=== PATIENT | female | born 1980 | race Caucasian/White ===

== ENCOUNTER 2022-05-19 07:06 | Outpatient (CLI) | payer OTHER, SELFPAY ==
--- OUTSIDE RECORDS SUMMARY | 2022-05-19 07:08 | XMS_ITS | Clinical Summary ---
:1980 Author Organization [employer] [place] [address] Care Team Providers Name Role Phone Tana Birmingham MD Primary Care Provider Unavailable Allergies No known active allergies Medications Medication Sig Dispensed Refills Start Date End Date Status LEXAPRO 20 MG TAB take 1 tablet 0 12/08/2008 Active (20 mg) by oral route once daily APRI 0.15 MG-30 MCG TAB take 1 tablet 0 12/08/2008 Active by oral route once daily hydrochlorothiazide (HCTZ) Take 1 tablet 0 6 Active 25 mg tablet by mouth once daily. coenzyme q10 (COQ-10) 100 Take 1 capsule 0 6 Active mg cap by mouth once daily. medication order composer 400 mcg once 0 05/26/2016 Active daily. Folate 400 mcg daily Cholecalciferol, Vitamin Take 1 tablet 0 05/26/2016 Active D3, (VITAMIN D-3) 2,000 by mouth once unit tablet daily. multivitamin (MVI) tablet Take 1 tablet 0 05/26/2016 Active by mouth once daily. [place]-3 Fatty Acids (FISH Take 1 capsule 0 6 Active OIL) 500 mg capsule by mouth once daily. Active Problems Patient Care Coordination Note Formatting of this note might be differe nt from the original. Provided patient Clean TeQ Weight Ma pan Manual: Medical Program Amrita Montero RD, LD [facility] 05/08/2016 Problem Noted Date Controlled substance agreement terminated 11/28/2016 Elevated fasting glucose 05/25/2016 Vitamin D insufficiency 05/25/2016 Obesity, morbid, BMI 40.0-49.9 05/08/2016 Hypertension 05/08/2016 Infertility, female 05/08/2016 Overview: [facility] PL[facility] IVF -NEEDS TO HAVE BMI 35 OR LE SS Asthma Anxiety Depression Overview: Therapist is Lala Raman [facility] [place] Self-injurious behavior Overview: hospitalized age 19, [facility] Last symptoms 2014 Resolved Problems Problem Noted Date Resolved Date Controlled substance agreement signed 08/29/2016 Overview: For weight loss medications [facility] Signed 08/28/16 Family History Medical History Relation Name Comments Hypertension Father COPD Maternal Grandfather Heart Disease Maternal Grandfather CHF Hypertension Maternal Grandfather Stroke Maternal Grandfather In his 50's Hypertension Mother Hypertension Paternal Grandfather Diabetes Paternal Grandmother Hypertension Paternal Grandmother Other Paternal Grandmother Hx of overw eight/ obesity Relation Name Status Comments Father Maternal Grandfather Mother Paternal Grandfather Paternal Grandmother Social History Tobacco Use Types Packs/Day Years Used Date Never Smoker Smokeless Tobacco: Never Used Tobacco Cessation: Counseling Given: No Comments: 10/02/16 Alcohol Use Standard Drinks/Week Comments Yes 0 (1 standard drink = 0.6 oz pure alcoho l) 10/02/16 Socially Alcohol Habits Answer Date Recorded How often do you have a drink containing alcohol? Not asked How many drinks containing alcohol do you have on a Not aske d typical day when you are drinking? How often do you have six or more drinks on one Not asked occasion? Comment: 10/02/16 Socially 10/02/2016 Sex Assigned at Date Recorded Not on file Obstetrics History Last Filed Vital Signs Vital Sign Reading Time Taken Comments Blood Pressure 106/76 11/28/2016 10:00 AM CDT Pulse 84 11/28/2016 10:00 AM CDT Temperature - - Respiratory Rate 16 11/28/2016 10:00 AM CDT Oxygen Saturation - - Inhaled Oxygen Concentration - - Weight 109.3 kg (241 lb) 11/28/2016 10:00 AM CDT Height 167.6 cm (5' 5.98) 11/28/2016 10:00 AM CDT Body Mass Index 38.92 11/28/2016 10:00 AM CDT Plan of Treatment Health Maintenance Due Date Last Done Comments COVID-19 vaccine series (#1) 04/12/1981 Tdap 10/12/1991 Hepatitis C screening for age 0410/11/1998 18-79 Tetanus booster 2000 Depression screening for age 12+ 10/02/2017 10/02/2016, , 05/08/2016, Additional history exists BMI (ht and wt on same day) for 11/28/2017 11/28/2016, 10/08, age 18+ 10/02/2016, Additional history exists Pap test for age 21-65 12/01/2019 11/30/2016, 11/30/2016, 11/22/2011, Additional history exists Influenza for age 9-49 03/09/2022 Results Not on filefrom Last 3 Months Insurance Payer Benefit Plan / Subscriber ID Effective Dates Phone Addre ss Type Group PREFERRED ONE PREFERRED ONE [id number] 2015-Regina [address]ARKER [address] [place] [address] Care Teams Salon Shampoo Assistant Relationship Specialty Start Date End Date Tana Birmingham MD PCP - General 12/07/08
--- NOTE | 2022-05-19 07:15 | MR_ITS ---
[address] [address] Phone:?[phone] Fax:?[phone] Referring Physician Information: Franko Cates M.D. [address] [facility] [address] Phone:?[phone] Fax:?[phone] Patient:Stephie Wahl D.O.B:?1980 Sex:?Female Phone:?[phone] [facility] MRN:?[id number] Exam Date:?05/19/2022 ? EXAM: MRI OF THE RIGHT KNEE CLINICAL INFORMATION: The patient is a 41-year-old with right knee pain. Evaluate for medial meniscal tear. PRIOR SURGERY: None reported. COMPARISON STUDIES: There are no prior studies available for comparison. TECHNICAL INFORMATION: Imaging was performed on a high-field, 1.5 Veronica MR scanner. Axial proton-density and axial fat-suppressed T2 imaging of the right knee was performed in addition to coronal proton-density, T2, and STIR imaging. Sagittal proton-density and sagittal fat-suppressed T2 imaging was also performed. FINDINGS: Articular/Extraarticular collections: Effusion: Mild to moderate. Popliteal cyst: None. Loose bodies: No well-defined intra-articular loose bodies are present. Subcutaneous and extraarticular soft tissues: Nonspecific subcutaneous soft tissue edema and/or hemorrhage can be seen along the anterior aspect of the knee on sagittal series 6 image 12. Osseous structures: No evidence for marrow edema or cortical injury. No evidence for fracture or stress injury. No evidence for destructive bony lesion. Ligamentous structures: ACL: Intact and normal in appearance. PCL: Intact and normal in appearance. MCL: Intact and normal in appearance. LCL: Intact and normal in appearance. Posterolateral corner: Intact and normal in appearance. Posteromedial corner: No posteromedial corner soft tissue injury. Semimembranosus and pes anserine tendons demonstrate no tendinopathy or associated bursitis. Extensor mechanism/Patellar retinacular structures: Patellar tendon: Intact, without tendinopathy. Quadriceps tendon: Intact, without tendinopathy. Retinacula: The medial and lateral retinacula are intact. The medial patellofemoral ligament is intact. Medial compartment: Medial meniscus: The medial meniscus is abnormal in appearance. There is complex tearing of the middle one third of the medial meniscus seen involving the apical free edge and inferior surfaces on coronal series 7 image 18. Additional suspected horizontal tearing of the posterior horn can be seen on sagittal series 5 image 20. The area of meniscal tearing is thought to measure approximately 18 mm in greatest dimension. The anterior horn appears intact. No definite parameniscal cyst formation is seen. Medial femoral condyle: Full-thickness or near full-thickness chondral loss can be seen along the weightbearing surfaces of the medial femoral condyle on sagittal series 5 image 20 and on coronal series 7 image 19. The area measures approximately 26 mm in greatest dimension. Medial tibial plateau: Broad-based changes of grade II to III chondromalacia can be seen along the weightbearing surfaces of the medial tibial plateau. Lateral compartment: Lateral meniscus: No evidence for lateral meniscal tearing is present. No evidence for parameniscal cyst formation can be seen. Lateral femoral condyle: No chondromalacia, chondral defect, or osteochondral abnormality. Lateral tibial plateau: No chondromalacia, chondral defect, or osteochondral abnormality. Patellofemoral compartment: Patella: No chondromalacia, chondral defect, or osteochondral abnormality. Trochlea: No chondromalacia, chondral defect, or osteochondral abnormality. Neurovascular: No definite neurovascular abnormalities are seen. CONCLUSION: 1. Tearing of the middle and posterior portions of the medial meniscus. No lateral meniscal tearing is seen. 2. Chondromalacia and chondral thinning involving the medial femoral condyle and medial tibial plateau. 3. The cruciate and collateral ligaments appear intact. 4. No acute bony abnormalities are seen. 5. Mild to moderate knee joint effusion. AEC Electronically signed on 05/19/2022 3:55:00 PM by Wally Singh M.D.
== END 2022-05-19 07:07 | disposition home or self-care (01) ==
LOC: MRI 07:06
PROVIDERS: Visit Provider Orthopaedic Surgery Sports Medicine
DX: M25.561 Pain in right knee (principal); S83.241A Other tear of medial meniscus, current injury, right knee, initial encounter; M94.241 Chondromalacia, joints of right hand; M25.461 Effusion, right knee
CPT/HCPCS: 73721

== ENCOUNTER 2022-06-28 11:01 | Outpatient (CLI) | payer OTHER, SELFPAY ==
[2022-06-28 16:44] LABS: Chloride* 104 mmol/L (96-114); Sodium* 140 mmol/L (135-149)
[2022-06-28 16:45] LABS: Potassium* 3.5 mmol/L (3.6-5.1)
[2022-06-28 16:47] LABS: Blood Urea Nitrogen* 12 mg/dL (5-24); Carbon Dioxide* 30 mmol/L (20-32); Creatinine* 0.6 mg/dL (0.5-1.5); Estimated Glomerular Filt Rate 116 ml/min
[2022-06-28 16:48] LABS: Calcium* 9.4 mg/dL (8.4-10.6); Glucose* 77 mg/dL (60-115)
== END 2022-06-28 11:02 | disposition home or self-care (01) ==
LOC: FRMREF 11:02
PROVIDERS: PCP Family Medicine; Visit Provider Family Medicine
DX: Z01.818 Encounter for other preprocedural examination (principal); R06.2 Wheezing; S83.241A Other tear of medial meniscus, current injury, right knee, initial encounter
CPT/HCPCS: 80048

== ENCOUNTER 2022-07-17 06:43 | Day surgery (SDC) | payer OTHER, SELFPAY ==
[2022-07-17] VITALS (12 sets, daily range): BP systolic 75–141; BP diastolic 42–102; PULSE 59–91; RESP 16–18; TEMP 35.9–36.2; O2SAT 97–99; BMI 43.5
[2022-07-17 07:00] LABS: HCG Qualitative* Negative (Negative)
[2022-07-17] MEDS: SODIUM CHLORIDE 0.9 % (FLUSH) 10 ML SYRINGE IVF (07:15)
[2022-07-17] MEDS: LACTATED RINGERS 1000 ML 1,000 ML 100 ML IV (07:15)
[2022-07-17] MEDS: CEFAZOLIN 2 GM in 0.9 % SODIUM CHLORIDE Mini-bag 100 ML IVPB (08:43)
--- NOTE | 2022-07-17 09:27 | W.ANESCHARGE ---
Anesthesia Charges Start Date/Time Anesthesia Start Date: 07/17/22 Anesthesia Start Time: 08:33 Stop Date/Time Anesthesia Stop Date: 07/17/22 Anesthesia Stop Time: 09:25 Summary Emergency: No
--- NOTE | 2022-07-17 09:44 | P.ORPRC_ITS ---
Procedure Note Date of procedure: 07/17/22 Procedure: PREOPERATIVE DIAGNOSIS: 1. Right knee medial meniscus tear POSTOPERATIVE DIAGNOSIS: 1. Right knee medial meniscus tear 2. 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 Right knee arthroscopic partial medial menisectomy SURGEON: Franko Cates M.D. COMMERCIAL LINES ACCOUNT ASSISTANT: Chon Calvert PA-C. Of note, an assistant hvac mechanic was critical for this case to aid in patient positioning, knee manipulation, instrument exchange, and closure. ANESTHESIA: Spinal EBL: 2ml TOURNIQUET: 25 minutes at 300 torr COMPLICATIONS: None evident INDICATIONS: The patient is a pleasant 41-year-old female who has experienced right knee pain particularly with any twisting or turning. Physical exam was concerning for medial meniscus tear, this was confirmed on MRI. Additionally, attempted nonoperative management has been tried, and failed. Thus, surgery was recommended. FINDINGS: The small apical free edge tear midbody to posterior horn junction medial meniscus. No appreciable full-thickness vertical tearing evident. No significant horizontal tearing evident. We probed this very diligently on both the femoral and tibial surfaces without evidence of further tearing. Aggressive probing showed this to be stable. The posterior root was intact and stable. She did have a region of grade 4 chondromalacia measuring 6 x 8 mm weight- bearing portion medial femoral condyle. Some adjacent grade 3 chondromalacia surrounding this up to a 25 mm in diameter. There is another grade 4 chondral lesion more in the distal anterior medial femoral condyle more along the medial aspect with some hemorrhagic chondral tissue surrounding it measuring approximately 8 mm in diameter. Finally, grade 2 chondromalacia patellofemoral compartment. Lateral compartment was intact articular cartilage and intact lateral meniscus. DESCRIPTION OF PROCEDURE: After a thorough discussion of risks, benefits, and alternatives, the patient was brought to the operating room and placed upon the operating table. Induction of anesthesia was undertaken as previously noted. 3 g IV Ancef was administered within 1 hr of incision preoperatively. Appropriate time-out was performed identifying proper patient, site, and procedure. The right lower extremity was prepped and draped in the appropriate sterile fashion using ChloraPrep. The limb was exsanguinated and tourniquet inflated. Anterolateral and anteromedial portals were established with an 11 blade, and a diagnostic arthroscopy was performed. This identified the findings as noted above. Following the diagnostic arthroscopy, a partial medial menisectomy was performed with the combination of basket forceps and a motorized shaver. Following this, the meniscus was re-probed and found to be stable. Approximately 5-10 % of the overall meniscus required resection. At this stage, the shaver was reinserted into the suprapatellar pouch and all remaining meniscal debris was evacuated. Instruments were removed, excess fluid was drained, and closure performed with 4-0 Monocryl with Steri-Strips. Dressings were applied, the tourniquet deflated, and the patient was awoken from anesthesia and transferred to the PACU in stable condition. PLAN: 1. Weightbear as tolerated operative extremity. Crutch / walker ambulation assistance PRN. 2. Ice, acetominophen and/or ibuprofen, and Percocet for pain as needed. 3. Knee range of motion and quad sets/straight leg raise regularly 4. Follow up with PA visit in 1-2 weeks for a wound check and possibly to initiate physical therapy.
== END 2022-07-17 11:17 | disposition home or self-care (01) ==
PROVIDERS: Nurse Anesthetist, Certified Registered; PCP Family Medicine; Visit Provider Orthopaedic Surgery Sports Medicine
PROC: (CPT 29870; principal; 2022-07-17 07:45)
DX: S83.241A Other tear of medial meniscus, current injury, right knee, initial encounter (principal); M22.41 Chondromalacia patellae, right knee
CPT/HCPCS: 29881; 01400; 84703; J0690; J1100; J1885; J2250; J2400; J2405; J2704; J3010; J7120

== ENCOUNTER 2022-08-30 14:53 | Outpatient (CLI) | payer OTHER, SELFPAY ==
[2022-08-31 16:53] LABS: Albumin* 3.9 g/dL (3.3-5.0); Chloride* 105 mmol/L (96-114); Sodium* 139 mmol/L (135-149)
[2022-08-31 16:54] LABS: Potassium* 3.6 mmol/L (3.6-5.1)
[2022-08-31 16:56] LABS: Alkaline Phosphatase* 112 U/L (40-150); Aspartate Amino Transferase* 20 U/L (12-35); Bilirubin Total* 0.6 mg/dL (0.1-1.5); Blood Urea Nitrogen* 12 mg/dL (5-24); Carbon Dioxide* 28 mmol/L (20-32); Cholesterol* 205 mg/dL (90-199); Creatinine* 0.6 mg/dL (0.5-1.5); Estimated Glomerular Filt Rate 116 ml/min; Glucose* 108 mg/dL (60-115); Triglycerides* 116 mg/dL (40-149)
[2022-08-31 16:57] LABS: Alanine Aminotransferase* 17 U/L (4-35); HDL Cholesterol* 56 mg/dL (>=50); LDL Cholesterol Calculated 126 mg/dL (<100)
[2022-08-31 17:07] LABS: Creatinine Urine 175.3 mg/dL
[2022-08-31 17:11] LABS: Microalbumin Creatinine Ratio 0 mg/g (0-30); Microalbumin Urine 1 mg/dL
== END 2022-08-30 14:54 | disposition home or self-care (01) ==
PROVIDERS: PCP Family Medicine; Visit Provider Family Medicine
DX: Z00.00 Encounter for general adult medical examination without abnormal findings (principal); E66.01 Morbid (severe) obesity due to excess calories; I10 Essential (primary) hypertension; F41.9 Anxiety disorder, unspecified; Z13.6 Encounter for screening for cardiovascular disorders
CPT/HCPCS: 80053; 80061; 82043; 82570

== ENCOUNTER 2023-01-02 16:15 | Outpatient (RCR) | payer OTHER, SELFPAY | END 2023-02-06 14:07 | disposition home or self-care (01) | PROVIDERS: PCP Family Medicine; Visit Provider Physician Assistant Surgical | DX: Z98.890 Other specified postprocedural states (principal); Z51.89 Encounter for other specified aftercare | CPT/HCPCS: 97110; 97112; 97140; 97161; 97530 ==

== ENCOUNTER 2023-02-02 11:14 | Outpatient (CLI) | payer OTHER, SELFPAY ==
--- NOTE | 2023-02-02 11:30 | CRLHL7_ITS ---
For Patients: As a result of the Cures Act, medical imaging exams and procedure reports are released immediately into your electronic medical record. You may view this report before your referring provider. If you have questions, please contact your health care provider. BILATERAL SCREENING MAMMOGRAM WITH COMPUTER-AIDED DETECTION AND TOMOSYNTHESIS TECHNIQUE: CC and MLO views were obtained. These mammographic images have been obtained using full-field digital technique. These mammographic images were interpreted with the benefit of computer-aided detection. Breast Tomosynthesis was used in this interpretation. COMPARISON FILM: 11/01/21. FINDINGS: The breasts are heterogeneously dense, which may obscure small masses IMPRESSION: There is no radiographic evidence for malignancy. ASSESSMENT: BI-RADS Category 1: Negative RECOMMENDATION: Routine screening mammogram in 1 year. A lay language report of this examination will be provided to the patient. Art Ware M.D. Diagnostic Radiologist [email or web address] MELANI/perico / be/Dictated by: Art Ware MD @ 02/02/2023 11:52:00 AM (Electronically Signed)
== END 2023-02-02 11:15 | disposition home or self-care (01) ==
LOC: MAMMO 11:15
PROVIDERS: PCP Family Medicine; Visit Provider Family Medicine
DX: Z12.31 Encounter for screening mammogram for malignant neoplasm of breast (principal); R92.2 Inconclusive mammogram
CPT/HCPCS: 77063; 77067

== ENCOUNTER 2023-03-22 08:35 | Outpatient (CLI) | payer OTHER, SELFPAY | END 2023-03-22 08:36 | disposition home or self-care (01) | LOC: NFLDREF 03-29 14:20 | PROVIDERS: PCP Family Medicine; Referring Provider Family Medicine; Visit Provider Family Medicine | DX: E78.00 Pure hypercholesterolemia, unspecified (principal); R73.03 Prediabetes; E66.01 Morbid (severe) obesity due to excess calories; I10 Essential (primary) hypertension | CPT/HCPCS: 80053; 80061; 82043; 82570 ==

== ENCOUNTER 2024-01-07 08:24 | Outpatient (CLI) | payer OTHER, SELFPAY ==
--- OUTSIDE RECORDS SUMMARY | 2024-01-07 08:29 | XMS_ITS | Clinical Summary ---
Author Organization [employer] [facility] [employer] [facility] Address [place], [place] [address] Care Team Providers Care Mountain Guide Name Role Phone Tana Birmingham MD Primary Care Provider Unavai lable Allergies No known active allergies Medications Medication Sig Dispensed Refills Start Date End Date Status LEXAPRO 20 MG TAB take 1 tablet (20 mg) by oral route once daily 0 12/08/2008 Active APRI 0.15 MG-30 MCG TAB take 1 tablet by oral route once daily 0 12/08/2008 Active hydrochlorothiazide (HCTZ) 25 mg tablet Take 1 tablet by mouth once daily. 0 04/06/2016 Active coenzyme q10 (COQ-10) 100 mg cap Take 1 capsule by mouth once daily. 0 05/26/2016 Active medication order composer 400 mcg once daily. Folate 400 mcg daily 0 05/26/2016 Active Cholecalciferol, Vitamin D3, (VITAMIN D-3) 2,000 unit tablet Take 1 tablet by mouth once daily. 0 05/26/2016 Active multivitamin (MVI) tablet Take 1 tablet by mouth once daily. 0 05/26/2016 Active [place]-3 Fatty Acids (FISH OIL) 500 mg capsule Take 1 capsule by mouth once daily. 0 05/26/2016 Active Active Problems Patient Care Coordination No te Formatting of this note migh t be different from the original. Provided patient [employer] Weight Management Manual: Medical Program Amrita Montero RD, LD [facility] 05/08/2016 Problem Noted Date Diagnosed Date Controlled substance agreement terminated 2016 Elevated fasting glucose 05/25/2016 Vitamin D insufficiency 05/25/2016 Obesity, morbid, BMI 40.0-49.9 05/08/2016 Hypertension 05/08/2016 Infertility, female 05/08/2016 Overview: [facility] PLANNING IVF -NEEDS TO HAVE BMI 35 OR LESS Asthma Anxiety Depression Overview: Therapist is Lala Raman [facility] [place] Self-injurious behavior Overview: hospitalized age 19, [facility] Last symptoms 2014 Resolved Problems Problem Noted Date Diagnosed Date Resolved Date Controlled substance agreement signed 08/29/2016 11/28/2016 Overview: For weight loss medications [facility] Signed 08/28/16 Family History Medical History Relation Name Comments Hypertension Father COPD Maternal Grandfather Heart Disease Maternal Grandfather CHF Hypertension Maternal Grandfather Stroke Maternal Grandfather In his 50's Hypertension Mother Hypertension Paternal Grandfather Diabetes Paternal Grandmother Hypertension Paternal Grandmother Other Paternal Grandmother Hx of o verweight/ obesity Relation Name Status Comments Father Maternal Grandfather Mother Paternal Grandfather Paternal Grandmother Social History Tobacco Use Types Packs/Day Years Used Date Smoking Tobacco: Never Smokeless Tobacco: Never Tobacco Cessation:Counseling Given: No Comments:10/02/16 Alcohol Use Standard Drinks/Week Comments Yes 0 (1 standard drink = 0.6 oz pur e alcohol) 10/02/16 Socially Sex and Gender Information Value Date Recorded Sex Assigned at Not on file Gender Identity Not on file Sexual Orientation Not on file Obstetrics History Last Filed [...] 167.6 cm (5' 5.98) 11/28/2016 10:00 AM C DT Body Mass Index 38.92 11/28/2016 10:00 AM CDT Plan of Treatment Health Maintenance Due Date Last Done Comments Tdap 10/12/1991 HIV for age 15-65 10/12/1995 Hepatitis C screening for age 18-79 1998 Tetanus booster 2000 Depression screening for age 12+ 10/02/2017 10/02/2016, 10/02/2016, 05/08/2016, Additional history exists BMI (ht and wt on same day) for age 18+ 11/28/2017 11/28/2016, 10/30/2016, 10/02/2016, Additional history exists COVID-19 vaccine series ( season) 2023 Influenza for age 9-49 03/09/2024 Pap test for age 21-65 08/30/2025 , 08/30/2022, 11/30/2016, Additional history exists Pneumococcal series for age 6-64 Aged Out No longer eligible based on patient's age to complete this topic Procedures Procedure Name Priority Date/Time Associated Diagnosis Comments HPV THIN PREP Routine 08/30/2022 12:00 PM EMBALMER/FUNERAL DIRECTOR from Last 3 Months or Most Recently Relevant to Health Maintenance Results * HPV HIGH RISK (08/30/2022 12:00 PM EMBALMER/FUNERAL DIRECTOR) TYPE 16 Negative Negative 09/06/2022 5:34 AM EMBALMER/FUNERAL DIRECTOR [facility] TYPE 18 Negative Negative 09/06/2022 5:34 AM EMBALMER/FUNERAL DIRECTOR [facility] OTHER HIGH RISK TYPES Negative Negative 09/06/2022 5:34 AM EMBALMER/FUNERAL DIRECTOR [facility] Other (Cervical) 08/30/2022 12:00 PM EMBALMER/FUNERAL DIRECTOR 09/01/2022 9:35 AM EMBALMER/FUNERAL DIRECTOR Narrative [facility] - 09/06/2022 5:34 AM EMBALMER/FUNERAL DIRECTOR HPV types 16, 18, 31, 33, 35, 39, 45, 51, 52, 56, 58, 59, 66 and 68 DNA were undetectable or below the pre-set threshold. Methodology: Aydee Mehran 4800 HPV Test Helen Gutiérrez [facility] [address] [place] [address], from Last 3 Months or Most Recently Relevant to Health Maintenance Care Teams Mountain Guide Relationship Specialty Start Date End Date Tana Birmingham MD PCP - General 12/07/08
== END 2024-01-07 08:25 | disposition home or self-care (01) ==
PROVIDERS: PCP Family Medicine; Visit Provider Family Medicine
DX: I10 Essential (primary) hypertension (principal); R73.03 Prediabetes; R53.83 Other fatigue; Z13.220 Encounter for screening for lipoid disorders; Z13.29 Encounter for screening for other suspected endocrine disorder; Z11.59 Encounter for screening for other viral diseases
CPT/HCPCS: 80053; 80061; 82043; 82570; 84443; 86803

== ENCOUNTER 2024-03-18 14:26 | Outpatient (CLI) | payer OTHER, SELFPAY ==
--- OUTSIDE RECORDS SUMMARY | 2024-03-18 14:29 | XMS_ITS | Clinical Summary ---
Author Organization [employer] [facility] [employer] [facility] Address [place], [place] [address] Care Team Providers Care Research Compliance Specialist Name Role Phone Tana Birmingham MD Primary [...] by mouth once daily. 0 05/26/2016 Active [place]-3 Fatty Acids (FISH OIL) 500 mg capsule Take 1 capsule by mouth once daily. 0 05/26/2016 Active Active Problems Patient Care Coordination No te Formatting of this note migh t be different from the original. Provided patient [employer] Weight Management Manual: Medical Program Amrita Montero RD, LD [facility] 05/08/2016 Problem Noted Date Diagnosed Date Controlled substance agreement terminated 2016 Elevated fasting glucose 05/25/2016 Vitamin D insufficiency 05/25/2016 Obesity, morbid, BMI 40.0-49.9 05/08/2016 Hypertension 05/08/2016 Infertility, female 05/08/2016 Overview (05/10/2016): [facility] PLANNING IVF -NEEDS TO HAVE BMI 35 OR LESS Asthma Anxiety Depression Overview (05/10/2016): Therapist is Lala Raman [facility] [place] Self-injurious behavior Overview (05/10/2016): hospitalized age 19, [facility] Last symptoms 2014 Resolved Problems Problem Noted Date Diagnosed Date Resolved Date Controlled substance agreement signed 08/29/2016 11/28/2016 Overview (08/29/2016): For weight loss medications [facility] Signed 08/28/16 Family [...] 10/02/2016, Additional history exists COVID-19 vaccine series (2022- season) 2024 Influenza for age 9-49 03/09/2024 Pap test for age 21-65 08/30/2025 , 08/30/2022, 11/30/2016, Additional history exists Pneumococcal series for age 6-64 Aged Out No longer eligible based on patient's age to complete this topic Procedures Procedure Name Priority Date/Time Associated Diagnosis Comments HPV THIN PREP Routine 08/30/2022 12:00 PM COVER CUTTER from Last 3 Months or Most Recently Relevant to Health Maintenance Results * HPV HIGH RISK (08/30/2022 12:00 PM COVER CUTTER) TYPE 16 Negative Negative 09/06/2022 5:34 AM COVER CUTTER [facility] TYPE 18 Negative Negative 09/06/2022 5:34 AM COVER CUTTER [facility] OTHER HIGH RISK TYPES Negative Negative 09/06/2022 5:34 AM COVER CUTTER [facility] Other (Cervical) 08/30/2022 12:00 PM COVER CUTTER 09/01/2022 9:35 AM COVER CUTTER Narrative [facility] - 09/06/2022 5:34 AM COVER CUTTER HPV types 16, 18, 31, 33, 35, 39, 45, 51, 52, 56, 58, 59, 66 and 68 DNA were undetectable or below the pre-set threshold. Methodology: Aydee Mehran 4800 HPV Test Helen Gutiérrez [facility] [address] [place] [address], from Last 3 Months or Most Recently Relevant to Health Maintenance Care Teams Research Compliance Specialist Relationship Specialty Start Date End Date Tana Birmingham MD PCP - General 12/07/08
--- NOTE | 2024-03-18 14:40 | CRLHL7_ITS ---
For Patients: As a result of the Century Cures Act, medical imaging exams and procedure reports are released immediately into your electronic medical record. You may view this report before your referring provider. If you have questions, please contact your health care provider. BILATERAL SCREENING MAMMOGRAM WITH COMPUTER-AIDED DETECTION AND TOMOSYNTHESIS TECHNIQUE: CC and MLO views were obtained. These mammographic images have been obtained using full-field digital technique. These mammographic images were interpreted with the benefit of computer-aided detection. Breast Tomosynthesis was used in this interpretation. COMPARISON FILM: 02/02/23, 11/01/21. FINDINGS: The breasts are heterogeneously dense, which may obscure small masses. IMPRESSION: There is no radiographic evidence for malignancy. ASSESSMENT: BI-RADS Category 1: Negative RECOMMENDATION: Routine screening mammogram in 1 year. A lay language report of this examination will be provided to the patient. Art Ware M.D. Diagnostic Radiologist [email or web address] SP/Dictated by: Art Ware MD @ 03/20/2024 11:57:00 AM (Electronically Signed)
== END 2024-03-18 14:27 | disposition home or self-care (01) ==
LOC: MAMMO 14:26
PROVIDERS: PCP Family Medicine; Visit Provider Family Medicine
DX: Z12.31 Encounter for screening mammogram for malignant neoplasm of breast (principal); R92.2 Inconclusive mammogram
CPT/HCPCS: 77063; 77067

== ENCOUNTER 2024-04-24 09:48 | Outpatient (CLI) | payer OTHER, SELFPAY ==
--- OUTSIDE RECORDS SUMMARY | 2024-04-24 09:50 | XMS_ITS | Clinical Summary ---
Author Organization [facility] Address [place], [place] [address] Care Team Providers Care Project Scientist Name Role Phone Tana Birmingham MD Primary [...] by mouth once daily. 0 05/26/2016 Active Harris-3 Fatty Acids (FISH OIL) 500 mg capsule Take 1 capsule by mouth once daily. 0 05/26/2016 Active Active Problems Patient Care Coordination No te Formatting of this note migh t be different from the original. Provided patient [place] [facility] Manual: Medical Program Amrita Montero RD, LD [facility] 05/08/2016 Problem Noted Date Diagnosed Date Controlled substance agreement terminated 2016 Elevated fasting glucose 05/25/2016 Vitamin D insufficiency 05/25/2016 Obesity, morbid, BMI 40.0-49.9 05/08/2016 Hypertension 05/08/2016 Infertility, female 05/08/2016 Overview (05/10/2016): Managed by [facility] PLANNING IVF -NEEDS TO HAVE BMI 35 OR LESS Asthma Anxiety Depression Overview (05/10/2016): Therapist is [facility] [place] Self-injurious behavior Overview (05/10/2016): hospitalized age 19, [facility] Last symptoms 2014 Resolved Problems Problem Noted Date Diagnosed Date Resolved Date Controlled substance agreement signed 08/29/2016 11/28/2016 Overview (08/29/2016): For weight loss medications [facility] Signed 08/28/16 Family [...] 10/02/2016, Additional history exists COVID-19 vaccine series (2023- season) 2024 Influenza for age 9-49 03/09/2024 Pap test for age 21-65 08/30/2025 , 08/30/2022, 11/30/2016, Additional history exists Pneumococcal series for age 6-64 Aged Out No longer eligible based on patient's age to complete this topic Procedures Procedure Name Priority Date/Time Associated Diagnosis Comments HPV HIGH RISK Routine 08/30/2022 12:00 PM [facility] P[facility] from Last 3 Months or Most Recently Relevant to Health Maintenance Results * HPV HIGH RISK (08/30/2022 12:00 PM STRIP[facility] SO[employer] PLASTIC) TYPE 16 Negative Negative 09/06/2022 5:34 AM STRIPPER SOFT PLASTIC [facility] TYPE 18 Negative Negative 09/06/2022 5:34 AM STRIPPER SOFT PLASTIC [facility] OTHER HIGH RISK TYPES Negative Negative 09/06/2022 5:34 AM STRIPPER SOFT PLASTIC [facility] Other (Cervical) 08/30/2022 12:00 PM STRIPPER SOFT PLASTIC 09/01/2022 9:35 AM STRIPPER SOFT PLASTIC Narrative [facility] - 09/06/2022 5:34 AM STRIPPER SOFT PLASTIC HPV types 16, 18, 31, 33, 35, 39, 45, 51, 52, 56, 58, 59, 66 and 68 DNA were undetectable or below the pre-set threshold. Methodology: Aydee Mehran 4800 HPV Test Helen Gutiérrez [facility] [address] [place] [address], from Last 3 Months or Most Recently Relevant to Health Maintenance Care Teams Project Scientist Relationship Specialty Start Date End Date Tana Birmingham MD PCP - General 12/07/08
== END 2024-04-24 09:49 | disposition home or self-care (01) ==
PROVIDERS: PCP Family Medicine; Visit Provider Family Medicine
DX: R53.83 Other fatigue (principal); R73.03 Prediabetes; I10 Essential (primary) hypertension; F41.9 Anxiety disorder, unspecified
CPT/HCPCS: 80053; 84443

== ENCOUNTER 2025-01-08 09:58 | Outpatient (CLI) | payer OTHER, SELFPAY | END 2025-01-08 09:59 | disposition home or self-care (01) | PROVIDERS: PCP Family Medicine; Visit Provider Family Medicine | DX: I10 Essential (primary) hypertension (principal); R73.03 Prediabetes; L50.9 Urticaria, unspecified; R63.8 Other symptoms and signs concerning food and fluid intake; J45.990 Exercise induced bronchospasm; Z13.6 Encounter for screening for cardiovascular disorders | CPT/HCPCS: 80053; 80061; 82043; 82570; 83520 ==

== ENCOUNTER 2025-03-31 12:49 | Outpatient (CLI) | payer OTHER, SELFPAY ==
--- NOTE | 2025-03-31 13:00 | CRLHL7_ITS ---
For Patients: As a result of the Century Cures Act, medical imaging exams and procedure reports are released immediately into your electronic medical record. You may view this report before your referring provider. If you have questions, please contact your health care provider. INDICATION: BILATERAL SCREENING MAMMOGRAM, ASYMPTOMATIC 44 Y/O FEMALE COMPARISON: 03/18/2024, 02/02/2023, 11/01/2021 TECHNIQUE: Digital mammogram in CC and MLO projections including computer-aided detection (CAD) and tomosynthesis. BREAST COMPOSITION: The breasts are heterogeneously dense, which may obscure small masses. FINDINGS: No suspicious findings. ASSESSMENT: BI-RADS 1 Negative RECOMMENDATION: Annual screening mammogram. A lay language report of this examination will be provided to the patient. Dictated by: Roula Vidal MD @ 04/01/2025 12:25:46 (Electronically Signed)
== END 2025-03-31 12:50 | disposition home or self-care (01) ==
LOC: MAMMO 12:49
PROVIDERS: PCP Family Medicine; Visit Provider Family Medicine
DX: Z12.31 Encounter for screening mammogram for malignant neoplasm of breast (principal); R92.333 Mammographic heterogeneous density, bilateral breasts
CPT/HCPCS: 77063; 77067

== ENCOUNTER 2025-04-28 13:26 | Outpatient (CLI) | payer OTHER, SELFPAY ==
--- NOTE | 2025-04-28 13:45 | MR_ITS ---
[address] [address] Phone:?[phone] Fax:?[phone] Referring Physician Information: Franko Cates M.D. [id number] [facility] [address] Phone:?[phone] Fax:?[phone] Patient:Stephie Wahl D.O.B:?1980 Sex:?Female Phone:?[phone] [facility] MRN:?[id number] Exam Date:?04/28/2025 EXAM: MRI of the LEFT KNEE without contrast CLINICAL: Left knee pain. Evaluate for lateral meniscal tear. COMPARISONS: X-rays 04/28/2025. TECHNICAL: Multiplanar multisequence MRI of the left knee was obtained. SEDATION: None. CONTRAST: None. FINDINGS: Evaluation of the obtained sequences is somewhat limited by artifact. Ligaments: ACL: Intact and unremarkable. PCL: Intact and unremarkable. MCL: Intact and unremarkable. LCL: Intact and unremarkable. Posterolateral corner: The popliteus tendon, distal biceps femoris tendon, distal iliotibial band, and the popliteofibular ligament appear intact. Posteromedial corner: Semimembranosus, pes anserine tendons and posterior oblique ligament appear intact. Extensor mechanism: Patellar tendon: Intact, without tendinopathy. Quadriceps tendon: Intact, without tendinopathy. Retinacula: Medial and lateral retinacula are intact. Fat pads: Unremarkable infrapatellar Hoffa's, quadriceps and prefemoral fat pads. Patellofemoral joint: Patella: No significant chondromalacia. Trochlea: Small segment of high-grade chondral loss with adjacent focal osteophyte formation and mild subchondral marrow edema involving the inferior medial trochlea on sagittal series 6 image 14 and axial series 4 image 20. Medial compartment: Medial meniscus: There is complex tearing involving the posterior root as seen on sagittal series 6 image 13-14 and coronal series 8 image 22. No evidence of significant meniscal displacement at this time. Medial cartilage: There is high-grade near full-thickness to full-thickness chondral loss involving the weightbearing medial femoral condyle. Small segment of high-grade chondral loss involves the anterior medial tibial plateau with mild adjacent subchondral marrow edema on sagittal series 6 image 12. Lateral compartment: Lateral meniscus: No evidence of discrete meniscal tear or meniscal displacement. Lateral cartilage: No significant chondromalacia. Knee joint: Effusion: Small left knee effusion. Intra-articular bodies:?No convincing bodies identified. Popliteal cyst: None. Bones: There is reactive marrow edema seen to involve the tibial attachment site of the posterior root medial meniscus adjacent to the meniscal tear. No evidence of acute fracture. There is scattered edema within the subcutaneous soft tissues of the knee, nonspecific. IMPRESSION: 1. Complex tearing involving the posterior root medial meniscus. 2. High-grade chondral loss involving the medial compartment as above. Small segment of high-grade chondral loss and adjacent focal osteophyte formation also involves the inferior medial trochlea. 3. Small joint effusion. 4. No evidence of ligamentous injury or fracture. JCZ Electronically signed on 04/29/2025 8:53:00 AM by Gareth Jeffery D.O.
== END 2025-04-28 13:27 | disposition home or self-care (01) ==
LOC: MRI 13:28
PROVIDERS: PCP Family Medicine; Visit Provider Orthopaedic Surgery Sports Medicine
DX: M25.562 Pain in left knee (principal); S83.232A Complex tear of medial meniscus, current injury, left knee, initial encounter; M25.462 Effusion, left knee
CPT/HCPCS: 73721